=== PATIENT | female | born 2000 | race American Indian/Alaskan Native ===

== ENCOUNTER 2021-04-27 13:03 | Emergency (ER) | payer SELFPAY ==
[2021-04-27] MEDS ORDERED: IBUPROFEN 600 MG TAB PO ONE (13:58)
--- NOTE | 2021-04-27 14:04 | Emergency Department Report ---
ED Extremity Problem HPI - General Chief complaint: Extremity Problem,Nontraumatic Stated complaint: SWOLLEN KNEE RT Time Seen by Provider: 04/27/21 13:57 Source: patient Mode of arrival: Wheelchair Limitations: No Limitations - History of Present Illness Initial comments: 21 y/o c/o right knee pain and swelling since yesterday morning. Denies any injury. No fever no medical history. Took no medication and NKDA. No concern for . Weight bearing makes it worst. MD Complaint: joint swelling, joint paint Location: right, knee History of Same: No Severity scale (0 -10): 6 Quality: stabbing, sharp Consistency: constant Improves with: immobilization Worsens with: weight bearing, walking Associated Symptoms: denies other symptoms - Related Data Previous Rx's Medication Instructions Recorded Last Taken Type Ibuprofen [Motrin 600 MG tab] 600 mg PO Q8H PRN #30 tablet 04/27/21 Unknown Rx Allergies Allergy/AdvReac Type Severity Reaction Status Date / Time No Known Allergies Allergy Verified 04/27/21 13:58 ED Review of Systems ROS: Stated complaint: SWOLLEN KNEE RT Other details as noted in HPI Comment: All other systems reviewed and negative ED Past Medical Hx - Medications Home Medications: Home Medications Medication Instructions Recorded Confirmed Last Taken Type Ibuprofen [Motrin 600 MG tab] 600 mg PO Q8H PRN #30 tablet 04/27/21 Unknown Rx ED Physical Exam - General Limitations: No Limitations General appearance: alert, in no apparent distress - Head Head exam: Present: atraumatic, normocephalic - Eye Eye exam: Present: normal appearance - ENT ENT exam: Present: normal external ear exam - Neck Neck exam: Present: normal inspection, full ROM - Respiratory Respiratory exam: Absent: respiratory distress, accessory muscle use - Cardiovascular Cardiovascular Exam: Present: regular rate - Expanded Lower Extremity Exam Right Upper Leg exam: Present: normal inspection, full ROM Knee exam: Present: full ROM, tenderness, swelling, erythema Lower Leg exam: Present: normal inspection, full ROM Ankle exam: Present: normal inspection, full ROM Foot/Toe exam: Present: normal inspection, full ROM ED Course Vital Signs 04/27/21 13:56 Temperature 99.3 F Pulse Rate 90 Respiratory 14 Rate Blood Pressure 130/73 [Left] O2 Sat by Pulse 100 Oximetry ED Medical Decision Making - Lab Data Result diagrams: 04/27/21 14:05 Lab Results 04/27/21 04/27/21 Range/Units 14:05 14:05 WBC 7.4 (4.5-11.0) K/mm3 RBC 4.54 (3.65-5.03) M/mm3 Hgb 13.3 (10.1-14.3) gm/dl Hct 39.4 (30.3-42.9) % MCV 87 (79-97) fl MCH 29 (28-32) pg MCHC 34 (30-34) % RDW 12.4 L (13.2-15.2) % Plt Count 293 (140-440) K/mm3 Lymph % (Auto) 12.4 L (13.4-35.0) % Russell % (Auto) 9.1 H (0.0-7.3) % Eos % (Auto) 0.6 (0.0-4.3) % Baso % (Auto) 0.4 (0.0-1.8) % Lymph # (Auto) 0.9 L (1.2-5.4) K/mm3 Russell # (Auto) 0.7 (0.0-0.8) K/mm3 Eos # (Auto) 0.0 (0.0-0.4) K/mm3 Baso # (Auto) 0.0 (0.0-0.1) K/mm3 Seg Neutrophils % 77.5 H (40.0-70.0) % Seg Neutrophils # 5.7 (1.8-7.7) K/mm3 Uric Acid 2.7 L (3.5-7.6) mg/dL - Radiology Data Radiology results: report reviewed, image reviewed [address] [address] XRay Report Signed Patient: KATIE CASTRO MR#: [id number] : 2000 Acct:[id number] Age/Sex: 21 / F ADM Date: 04/27/21 Loc: ED Attending Dr: Ordering Physician: HAZEL CARMEN Date of Service: 04/27/21 Procedure(s): XR knee 3V RT Accession Number(s): [id number] cc: HAZEL CARMEN Fluoro Time In Minutes: RIGHT KNEE 3 VIEWS INDICATION: swelling. COMPARISON: None. IMPRESSION: Normal bone mineralization. No acute osseous findings or joint pathology. A moderate joint effusion extends to the suprapatellar bursa on the lateral image. If internal derangement is suspected, MRI could be obtained. Signer Name: Tong Brown Jr, MD Signed: 04/27/2021 2:34 PM Workstation Name: [id number] Transcribed By: TTR Dictated By: TONG BORWN JR, MD Electronically Authenticated By: TONG BROWN JR, MD Signed Date/Time: 04/27/211433 DD/ 32 TD/TT: - Medical Decision Making 21 y/o c/o right knee pain and swelling since yesterday morning. Denies any injury. No fever no medical history. Took no medication and NKDA. No concern for . Weight bearing makes it worst. X-ray, cbc, uric acid and ibuprofen 600mg. X-ray shows a moderate knee effusion extending to the patella bursa. Will refer to orthopedics for further evaluation patient placed in a knee immobilizer. Critical care attestation.: If time is entered above; I have spent that time in minutes in the direct care of this critically ill patient, excluding procedure time. ED Disposition Clinical Impression: Effusion of right knee joint Disposition: HOME / SELF CARE / HOMELESS Is pt being admited?: No Does the pt Need Aspirin: No Condition: Stable Instructions: Knee Effusion, [id number] Additional Instructions: X-ray shows no fracture but does show a moderate knee effusion. Placing you in a knee immobilizer pain medication and referral to an orthopedist provider for further evaluation. Prescriptions: Ibuprofen [Motrin 600 MG tab] 600 mg PO Q8H PRN #30 tablet PRN Reason: Pain Referrals: WARREN LUNDBERG MD [Staff Physician] - 3-5 Days BRENT ARCINIEGA MD [Staff Physician] - 3-5 Days Forms: Work/School Release Form(ED) Time of Disposition: 15:23
[2021-04-27 14:35] LABS: Basophils % (Auto) 0.4 % (0.0-1.8); Eosinophils % (Auto) 0.6 % (0.0-4.3); Hematocrit 39.4 % (30.3-42.9); Hemoglobin 13.3 gm/dl (10.1-14.3); Lymphocytes # (Auto) 0.9 K/mm3 (1.2-5.4); Lymphocytes % (Auto) 12.4 % (13.4-35.0); Mean Corpuscular HGB Conc 34 % (30-34); Mean Corpuscular Volume 87 fl (79-97); Monocytes # (Auto) 0.7 K/mm3 (0.0-0.8); Monocytes % (Auto) 9.1 % (0.0-7.3); Platelet Count 293 K/mm3 (140-440); Red Blood Count 4.54 M/mm3 (3.65-5.03); Red Cell Distribution Width 12.4 % (13.2-15.2)
--- NOTE | 2021-04-27 14:42 | XRay Report ---
RIGHT KNEE 3 VIEWS INDICATION: swelling. COMPARISON: None. IMPRESSION: Normal bone mineralization. No acute osseous findings or joint pathology. A moderate sherri int effusion extends to the suprapatellar bursa on the lateral image. If internal derangement is susp ected, MRI could be obtained. Signer Name: Tong Brown Jr, MD Signed: 04/27/2021 2:34 PM Workstation Name: [id number]
[2021-04-27 16:34] VITALS: BP 134/74
== END 2021-04-27 16:33 | disposition home or self-care (01) ==
LOC: ED 13:03
DX: M25.461 Effusion, right knee (principal)
CPT/HCPCS: 36415; 84550; 85025; 99283

== ENCOUNTER 2021-06-13 19:55 | Emergency (ER) | payer SELFPAY ==
[2021-06-13 21:15] LABS: Bilirubin,Urine NEG (Negative); Blood,Urine LG (Negative); Color,Urine Yellow (Yellow); Mucus,Urine 1+ /HPF
[2021-06-13 21:25] LABS: Protein,Urine >500 mg/dL (Negative); RBC,Urine > 182.0 /HPF (0.0-6.0)
[2021-06-13] MEDS ORDERED: IBUPROFEN 600 MG TAB PO ONE (22:47)
[2021-06-13] MEDS ORDERED: LIDOCAINE-MPF (1%) 10 MG/1 ML VIAL 5 ML INFILTRATI ONE (22:47)
--- NOTE | 2021-06-13 23:24 | Emergency Department Report ---
ED Abdominal Pain HPI - General Chief Complaint: Abdominal Pain Stated Complaint: PAIN/BLOOD IN URINE Source: patient Mode of arrival: Ambulatory Limitations: No Limitations - History of Present Illness Initial Comments: Patient is a A0 21-year-old -Nepalese female with no past medical history presents to the ED with complaint of acute onset persistent suprapubic pain with pressure, hematuria, dysuria, urinary frequency and urgency for the last 2 days. Patient states that in the last 12 hours, suprapubic pressure and hematuria has been persistent. Patient denies vaginal bleeding, vaginal discharge, dyspareunia, low back pain, chest pain, fever and chills, shortness of breath, nausea and vomiting or diarrhea, and low back pain. MD Complaint: abdominal pain (Suprapubic pressure and pain), other (Dysuria, urine frequency and urgency and hematuria) -: Sudden, days(s) (2) Location: suprapubic Radiation: none Migration to: no migration Severity: moderate Severity scale (0 -10): 4 Quality: cramping, aching, dull Consistency: intermittent Improves With: nothing Worsens With: other (Urination) Associated Symptoms: denies other symptoms, nausea. denies: vomiting, diarrhea, fever, chills, constipation, dysuria, melena, hematuria, anorexia, syncope - Related Data LMP (females 10-50): 3 weeks Previous Rx's Medication Instructions Recorded Last Taken Type Ibuprofen [Motrin 600 MG tab] 600 mg PO Q8H PRN #30 tablet 04/27/21 Unknown Rx Fluconazole [Diflucan TAB] 200 mg PO QDAY #1 tablet 06/13/21 Unknown Rx Ibuprofen [Motrin] 600 mg PO Q8H PRN #24 tablet 06/13/21 Unknown Rx Sulfamethoxazole/Trimethoprim 1 each PO Q12H #20 tab 06/13/21 Unknown Rx [Bactrim DS TAB] Allergies Allergy/AdvReac Type Severity Reaction Status Date / Time No Known Allergies Allergy Verified 04/27/21 13:58 ED Review of Systems ROS: Stated complaint: PAIN/BLOOD IN URINE Other details as noted in HPI Constitutional: denies: chills, fever Eyes: denies: eye pain, eye discharge, vision change ENT: denies: ear pain, throat pain Respiratory: denies: cough, shortness of breath, wheezing Cardiovascular: denies: chest pain, palpitations Endocrine: no symptoms reported Gastrointestinal: abdominal pain (Suprapubic pain). denies: nausea, vomiting, diarrhea, constipation, hematemesis Genitourinary: urgency, dysuria, frequency, hematuria. denies: discharge Musculoskeletal: denies: back pain, joint swelling, arthralgia Skin: denies: rash, lesions Neurological: denies: headache, weakness, paresthesias Psychiatric: denies: anxiety, depression Hematological/Lymphatic: denies: easy bleeding, easy bruising ED Past Medical Hx - Past Medical History Previous Medical History?: No - Surgical History Past Surgical History?: No - Medications Home Medications: Home Medications Medication Instructions Recorded Confirmed Last Taken Type Ibuprofen [Motrin 600 MG tab] 600 mg PO Q8H PRN #30 tablet 04/27/21 Unknown Rx Fluconazole [Diflucan TAB] 200 mg PO QDAY #1 tablet 06/13/21 Unknown Rx Ibuprofen [Motrin] 600 mg PO Q8H PRN #24 tablet 06/13/21 Unknown Rx Sulfamethoxazole/Trimethoprim 1 each PO Q12H #20 tab 06/13/21 Unknown Rx [Bactrim DS TAB] ED Physical Exam - General Limitations: No Limitations General appearance: alert, in no apparent distress - Head Head exam: Present: atraumatic, normocephalic, normal inspection - Eye Eye exam: Present: normal appearance, PERRL, EOMI Pupils: Present: normal accommodation - ENT ENT exam: Present: normal exam, normal orophraynx, mucous membranes moist, TM's normal bilaterally, normal external ear exam - Neck Neck exam: Present: normal inspection, full ROM - Respiratory Respiratory exam: Present: normal lung sounds bilaterally. Absent: respiratory distress, wheezes, rales, rhonchi, chest wall tenderness, accessory muscle use, decreased breath sounds, prolonged expiratory - Cardiovascular Cardiovascular Exam: Present: regular rate, normal rhythm, normal heart sounds. Absent: systolic murmur, diastolic murmur, rubs, gallop - GI/Abdominal GI/Abdominal exam: Present: soft, normal bowel sounds. Absent: tenderness, guarding, rebound, hyperactive bowel sounds, hypoactive bowel sounds, organomegaly - Bi-manual exam: Present: other (Pelvic exam deferred at this time) - Extremities Exam Extremities exam: Present: normal inspection, full ROM, normal capillary refill - Back Exam Back exam: Present: normal inspection, full ROM. Absent: tenderness, CVA tenderness (R), CVA tenderness (L), muscle spasm, paraspinal tenderness, vertebral tenderness - Neurological Exam Neurological exam: Present: alert, oriented X3, CN II-XII intact, normal gait, reflexes normal - Psychiatric Psychiatric exam: Present: normal affect, normal mood - Skin Skin exam: Present: warm, dry, intact, normal color. Absent: rash ED Course Vital Signs 06/13/21 20:34 Temperature 98.4 F Pulse Rate 72 Respiratory 18 Rate Blood Pressure 115/58 O2 Sat by Pulse 98 Oximetry ED Medical Decision Making - Medical Decision Making This is a A0 21-year-old -Nepalese female with no past medical history presents to the ED with complaint of acute onset persistent suprapubic pain with pressure, hematuria, dysuria, urinary frequency and urgency for the last 2 days. Patient states that in the last 12 hours, suprapubic pressure and hematuria has been persistent. In the ED, patient is alert and oriented x3 and is not in any distress. Urinalysis showed significant urinary tract infection with nitrite positive findings. Patient received Rocephin 1 g intramuscular injection with pain medications. Patient will discharge home on pain medications and antibiotics and advised to follow-up with her primary care physician in 7 to 10 days for reevaluation or return to the ED immediately if symptoms get worse. - Differential Diagnosis UTI; ; dysmenorrhea; Critical care attestation.: If time is entered above; I have spent that time in minutes in the direct care of this critically ill patient, excluding procedure time. ED Disposition Clinical Impression: Acute urinary tract infection, Acute cystitis with hematuria Disposition: HOME / SELF CARE / HOMELESS Is pt being admited?: No Does the pt Need Aspirin: No Condition: Stable Instructions: Abdominal Pain (ED), Urinary Tract Infection, Adult, [id number] Additional Instructions: The urinalysis showed significant urinary tract infection. Therefore take medication with food, drink plenty of fluids and follow-up with your primary care physician in 7 to 10 days for reevaluation or return to the ED immediately if symptoms get worse. Prescriptions: Sulfamethoxazole/Trimethoprim [Bactrim DS TAB] 1 each PO Q12H #20 tab Fluconazole [Diflucan TAB] 200 mg PO QDAY #1 tablet Ibuprofen [Motrin] 600 mg PO Q8H PRN #24 tablet PRN Reason: Pain Referrals: [facility] [Provider Group] - 7-10 days Forms: Work/School Release Form(ED) Time of Disposition: 23:25 Print Language: SAUDI ARABIAN
[2021-06-14 00:16] VITALS: BP 118/60
== END 2021-06-14 00:16 | disposition home or self-care (01) ==
LOC: ED 19:55
DX: N39.0 Urinary tract infection, site not specified (principal)
CPT/HCPCS: 81001; 96372; 99283; J0696; J3490

== ENCOUNTER 2021-08-10 12:16 | Emergency (ER) | payer BC ==
[2021-08-10 12:42] VITALS: BP 124/59
[2021-08-10] MEDS ORDERED: ONDANSETRON 4 MG ODT TAB PO ONE (15:41)
--- NOTE | 2021-08-10 15:45 | Emergency Department Report ---
ED General Adult HPI - General Chief complaint: Nausea/Vomiting/Diarrhea Stated complaint: VOMITING Time Seen by Provider: 08/10/21 15:34 Source: patient Mode of arrival: Ambulatory Limitations: No Limitations - History of Present Illness Initial comments: This is a pleasant and cooperative 21-year-old female who states that she does not believe that she is , who presents to the ER today with a complaint of essentially resolved nausea and vomiting. She is not having physical pain. She believes that she vomited x1 today. She drank water today. She really has not eaten much. She threw up 4 times yesterday, nonbloody nonbilious. She vap es, but does not consume marijuana. She denies dysuria. She denies physical pain. She denies sick contacts. Symptoms are intermittent, and do not have relieving factors at this time, and she believes that they slightly worsened when she attempts to eat. -: days(s) Consistency: intermittent Improves with: other (Not eating food) Worsens with: other (Eating food) Associated Symptoms: denies other symptoms - Related Data Previous Rx's Medication Instructions Recorded Last Taken Type Doxylamine Succinate/Vit B6 1 each PO QHS PRN #30 tablet. 08/10/21 Unknown Rx [Manpreet Moeller 10-10 mg Tablet] Nora Root [Nora] 250 mg PO QID PRN #30 capsule 08/10/21 Unknown Rx Vit-Fe Fumar-FA [ 1 tab PO QDAY #30 tablet 08/10/21 Unknown Rx Vitamin] Allergies Allergy/AdvReac Type Severity Reaction Status Date / Time No Known Allergies Allergy Verified 04/27/21 13:58 ED Review of Systems ROS: Stated complaint: VOMITING Other details as noted in HPI Comment: All other systems reviewed and negative Gastrointestinal: nausea, vomiting. denies: abdominal pain, diarrhea Genitourinary: denies: dysuria ED Past Medical Hx - Medications Home Medications: Home Medications Medication Instructions Recorded Confirmed Last Taken Type Doxylamine Succinate/Vit B6 1 each PO QHS PRN #30 tablet. 08/10/21 Unknown Rx [Manpreet Moeller 10-10 mg Tablet] Nora Root [Nora] 250 mg PO QID PRN #30 capsule 08/10/21 Unknown Rx Vit-Fe Fumar-FA [ 1 tab PO QDAY #30 tablet 08/10/21 Unknown Rx Vitamin] ED Physical Exam - General Limitations: No Limitations General appearance: alert, in no apparent distress - Head Head exam: Present: atraumatic, normocephalic - Eye Eye exam: Present: normal appearance, EOMI. Absent: nystagmus - ENT ENT exam: Present: normal exam, normal orophraynx, mucous membranes moist, normal external ear exam - Neck Neck exam: Present: normal inspection, full ROM. Absent: tenderness, meningismus - Respiratory Respiratory exam: Present: normal lung sounds bilaterally. Absent: respiratory distress, wheezes, rales, rhonchi, stridor, decreased breath sounds - Cardiovascular Cardiovascular Exam: Present: regular rate, normal rhythm, normal heart sounds. Absent: bradycardia, tachycardia, irregular rhythm, systolic murmur, diastolic murmur, rubs, gallop - GI/Abdominal GI/Abdominal exam: Present: soft. Absent: distended, tenderness, guarding, rebound, rigid, pulsatile mass - Extremities Exam Extremities exam: Present: normal inspection, full ROM, other (2+ pulses noted in the bilateral upper and lower extremities. There is no palpable cord. negative Homans sign. Muscular compartments are soft. The pelvis is stable.). Absent: pedal edema, calf tenderness - Back Exam Back exam: Present: normal inspection. Absent: tenderness, CVA tenderness (R), CVA tenderness (L), paraspinal tenderness, vertebral tenderness - Neurological Exam Neurological exam: Present: alert, oriented X3, normal gait, other (No facial droop. Tongue midline. Extraocular movements intact bilaterally. Facial sensation intact to light touch in V1, V2, V3 distribution bilaterally. 5 and a 5 strength in 4 extremities. Sensation intact to light touch in 4 extremities.). Absent: motor sensory deficit - Psychiatric Psychiatric exam: Present: normal affect, normal mood - Skin Skin exam: Present: warm, dry, intact, normal color. Absent: rash ED Course Vital Signs 08/10/21 08/10/21 12:41 15:47 Temperature 98.1 F Pulse Rate 100 H Respiratory 20 Rate Blood Pressure 124/59 [Right] O2 Sat by Pulse 100 Oximetry O2 Sat by Pulse 99 Oximetry [ Digit-Finger] - Reevaluation(s) Reevaluation #1: 08/10/21 15:44 Differential diagnosis, including but not limited to GERD, gastritis, , reflux, dehydration, renal dysfunction, hepatic dysfunction, electrolyte derangement Assessment and plan: 21-year-old female, who is afebrile, with reassuring vital signs, heart rate 90 bpm, with no abdominal tenderness, rebound or guarding, with resolving nausea/vomiting. Oral challenge with Zofran, check CMP and test. Reassess. Patient denies urinary symptoms. Patient reports that she does not consume marijuana. The patient is clinically sober at this time 08/10/21 17:44 No active vomiting. Patient able to drink water. Laboratory studies unremarkable. She is found to be . Bedside [id number] transabdominal ultrasound suggest gestational sac, possible heart movement. Patient is not having any physical pain at this time. Patient declines formal intracavitary/transvaginal radiology ultrasound. Given that she is not having any physical pain, and has no abdominal tenderness, and further reports that she is reliable to follow-up with an outpatient [facility] doctor soon as possible to initiate outpatient care, I think discharge with close follow-up is reasonable. Patient is furthermore requesting discharge. Discussed findings with patient. She articulates understanding. All questions answered - Pulse Oximetry Interpretation Digit-Finger Initial Pulse Oximetry Readin O2 Sat by Pulse Oximetry: 99 Actions Taken: none ED Medical Decision Making - Lab Data Result diagrams: 08/10/21 16:09 Vital Signs 08/10/21 08/10/21 12:41 15:45 Temperature 98.1 F Pulse Rate 100 H Respiratory 20 Rate Blood Pressure 124/59 [Right] O2 Sat by Pulse 100 Oximetry O2 Sat by Pulse 99 Oximetry [ Digit-Finger] Lab Results 08/10/21 08/10/21 Range/Units 16:09 16:09 Sodium 134 L (137-145) mmol/L Potassium 4.3 (3.6-5.0) mmol/L Chloride 99.6 (98-107) mmol/L Carbon Dioxide 23 (22-30) mmol/L Anion Gap 16 mmol/L BUN 10 (7-17) mg/dL Creatinine 0.6 (0.6-1.2) mg/dL Estimated GFR > 60 ml/min BUN/Creatinine Ratio 17 % Glucose 87 (65-100) mg/dL Calcium 9.2 (8.4-10.2) mg/dL Total Bilirubin 0.20 (0.1-1.2) mg/dL AST 13 (5-40) units/L ALT 10 (7-56) units/L Alkaline Phosphatase 46 (35-129) units/L Total Protein 6.9 (6.3-8.2) g/dL Albumin 4.6 (3.9-5) g/dL Albumin/Globulin Ratio 2.0 % HCG, Quant 86460 H (0-4) mIU/mL Critical care attestation.: If time is entered above; I have spent that time in minutes in the direct care of this critically ill patient, excluding procedure time. ED Disposition Clinical Impression: History of nausea and vomiting, Disposition: HOME / SELF CARE / HOMELESS Is pt being admited?: No Does the pt Need Aspirin: No Condition: Good Instructions: Nausea and Vomiting, Adult Additional Instructions: Avoid consumption of alcohol, tobacco, smoke products, Motrin, ibuprofen, Naprosyn, Aleve, heavy and spicy food. Start with a bland diet, such as bread, rice, apples, toast, drink plenty of water/fluids. Avoid consumption of sugar, simple carbohydrates, and processed foods. Water/Gatorade mixed with water and/or Pedialyte are ideal hydration supplements. Patient may take the nausea medication as needed and directed. Patient is found to be . Follow-up as soon as possible with an outpatient learning and development consultant to initiate outpatient care Please return to the emergency room right away with new pain, worsened pain, migration of pain, projectile vomiting, change in mental status, confusion, inability tolerate liquid feeds, new, worsened or different symptoms not present on the initial emergency room evaluation Prescriptions: Nora Root [Nora] 250 mg PO QID PRN #30 capsule PRN Reason: Nausea Ondansetron [Zofran Odt] 4 mg PO Q8HR PRN #20 tab.rapdis PRN Reason: Nausea Referrals: [facility] [Provider Group] - 3-5 Days [facility] [Provider Group] - 3-5 Days [facility] [Provider Group] - 3-5 Days Forms: Work/School Release Form(ED)
[2021-08-10 16:56] LABS: Alanine Aminotransferase 10 units/L (7-56); Albumin 4.6 g/dL (3.9-5); Blood Urea Nitrogen 10 mg/dL (7-17); Calcium 9.2 mg/dL (8.4-10.2); Hemolysis Index 5
[2021-08-10 17:07] LABS: BUN/Creatinine Ratio 17
== END 2021-08-10 18:02 | disposition home or self-care (01) ==
LOC: ED 12:16
DX: O21.9 Vomiting of pregnancy, unspecified (principal); Z3A.00 Weeks of gestation of pregnancy not specified
CPT/HCPCS: 36415; 80053; 84702; 99283; J3490; Q0162